=== PATIENT | female | born 2000 | race Two or more races ===

== ENCOUNTER 2021-11-08 12:37 | Emergency (ER) | payer OTHER, SELFPAY ==
[2021-11-08 12:42] VITALS: BP 131/73; PULSE 97; RESP 16; TEMP 36.7; O2SAT 100
--- NOTE | 2021-11-08 13:39 | ED.SKABFB ---
HPI - Skin/Abscess/Foreign Bdy General Chief complaint: Skin/Abscess/Foreign Body Stated complaint: burning and itchy rash that began 1 month ago Time Seen by Provider: 11/08/21 13:09 History of Present Illness HPI narrative: 21-year-old female presents to the emergency room today for complaints of rash to her lower extremities, groin and anterior trunk. She reports that the lesions appear like rings. She says that they are very itchy and she gets new lesions. She was initially treated with a topical antifungal. She says that it did go away when she used this but it came back in new places. She picked up a topical clotrimazole at [facility] yesterday and started using this last night. Related Data Allergies Allergy/AdvReac Type Severity Reaction Status Date / Time No Known Allergies Allergy Verified 11/08/21 12:38 Review of Systems Review of Systems: CONSTITUTIONAL: Denies fever, chills, or sweats. EYES: Denies visual changes, redness, or discharge. ENT: Denies rhinorrhea, congestion, sore throat, or otalgia. CARDIOVASCULAR: Denies chest pain, palpitations, or edema. RESPIRATORY: Denies cough or dyspnea. GASTROINTESTINAL: Denies abdominal pain, nausea, vomiting, or diarrhea. GENITOURINARY: Denies dysuria or hematuria. SKIN: As per HPI MUSCULOSKELETAL: Denies back pain, joint pain, or myalgia. NEUROLOGIC: Denies headache, numbness, dizziness, or weakness. PSYCHIATRIC: Denies anxiety or depression. Exam Narrative: GENERAL: Well-appearing, well-nourished, and in no acute distress. HEAD: Normocephalic, atraumatic. NECK: Supple. No adenopathy or masses. No carotid bruits or JVD CHEST: Clear to auscultation. No respiratory distress. No wheezes rales or rhonchi HEART: Regular rate and rhythm. No murmur heard. Normal peripheral pulses. ABDOMEN: Soft, nontender, nondistended, normal active bowel sounds. EXTREMITIES: Normal range of motion. No edema. SKIN: multiple annular lesions noted to thighs, groin, abdomen and chest wall, edges are mildly raised and rash has dry appearence NEURO: No focal deficits. Alert and oriented x3. PSYCH: Normal mood and affect. Course Vital Signs Vital signs: Vital Signs Temperature 36.7 C 11/08/21 12:42 Pulse Rate 97 11/08/21 12:42 Respiratory Rate 16 11/08/21 12:42 Blood Pressure 131/73 11/08/21 12:42 Pulse Oximetry 100 11/08/21 12:42 Oxygen Delivery Room Air 11/08/21 12:42 Temperature 36.7 C 11/08/21 12:42 Pulse Rate 97 11/08/21 12:42 Respiratory Rate 16 11/08/21 12:42 Blood Pressure 131/73 11/08/21 12:42 Pulse Oximetry 100 11/08/21 12:42 Oxygen Delivery Room Air 11/08/21 12:42 MDM - Skin/Abscess/Foreign Bdy Differential Diagnosis Differential diagnosis: Likely viral exanthem, urticaria, cellulitis, eczema, contact dermatitis and other (tinea corporus ) Discharge Plan Discharge Clinical Impression: Tinea corporis Patient Disposition: Home, Self-Care Condition: Stable Instructions: Antibiotic Form, Tinea Corporis (ED) Additional Instructions: Take diflucan as directed. May continue to use topical clotrimazole to lesions twice a day. If rash is not clearing, your primary care will need to refer you to a public finance specialist. Prescriptions: New fluconazole [Diflucan] 200 mg tablet 200 mg PO WEEKLY 28 Days Qty: 4 0RF Follow-up/Referrals: PHYSICIAN NOT ON STAFF,NONSTAFF [Primary Care Provider] - (in 1 week) Time of Disposition: 13:51
== END 2021-11-08 13:56 | disposition home or self-care (01) ==
PROVIDERS: Emergency Provider Nurse Practitioner Family
DX: B35.4 Tinea corporis (principal)
CPT/HCPCS: 99283

== ENCOUNTER 2023-11-30 16:57 | Emergency (ER) | payer OTHER, SELFPAY ==
--- NOTE | 2023-11-30 17:04 | ED.FEMALEGU ---
HPI - Female Genitourinary General Chief complaint: Abdominal Pain Stated complaint: LOW ABD PAIN/NO PERIOD Source: patient and RN notes reviewed Mode of arrival: ambulatory Limitations: no limitations History of Present Illness HPI Narrative: Patient is a 23-year-old female who presents to the [facility] with complaints vaginal pain and irritation. She states that she has been experiencing vaginal burning along with a milky, white discharge for the last few days. Patient states that she is also late for her menstrual cycle. She states that her last menstrual cycle was on October 13. States that she is a virgin and is not sexually active. She attempted to get in to an OBGYN but the soonest available appointment was in February/ March of next year. She denies abdominal pain, flank pain, nausea, vomiting. Denies recent fevers. Related Data Home Medications Medication Instructions Recorded Confirmed atorvastatin 10 mg tablet 10 mg PO DAILY 11/30/23 11/30/23 Allergies Allergy/AdvReac Type Severity Reaction Status Date / Time No Known Allergies Allergy Verified 11/30/23 17:07 Review of Systems Review of Systems: CONSTITUTIONAL: Denies fever, chills, or sweats. EYES: Denies visual changes, redness, or discharge. ENT: Denies otalgia and sore throat CARDIOVASCULAR: Denies chest pain, palpitations, or edema. RESPIRATORY: Denies cough or dyspnea. GASTROINTESTINAL: Denies abdominal pain, nausea, vomiting, or diarrhea. GENITOURINARY: Denies dysuria or hematuria. Reports vaginal burning and vaginal discharge. SKIN: Denies rash or itching. MUSCULOSKELETAL: Denies back pain, joint pain, or myalgia. NEUROLOGIC: Denies headache, numbness, or weakness. Pertinent positives per HPI. PMFSH Comments At the time of my signature, I reviewed and agree with the nursing past medical, surgical, social, and family history. There is no relevant family history pertinent to the patient complaint. Exam Narrative: GENERAL: This is a well-nourished, well-developed patient, in no apparent distress. HEAD: normocephalic, atraumatic. EYES: Sclera clear/white. Vision is grossly intact. EARS: External ears normal. Hearing grossly intact. NOSE: External nose normal with no obvious nasal discharge, nares without redness, no rhinorrhea. THROAT: Mucous membranes moist, posterior pharynx clear. NECK: Neck supple, non-tender without lymphadenopathy, masses or thyromegaly. CARDIOVASCULAR: Regular rate and rhythm without murmurs, gallops, or rubs. RESPIRATORY: Clear to auscultation. Breath sounds equal bilaterally. No wheezes, rales, or rhonchi. GASTROINTESTINAL: Abdomen soft, non-tender, nondistended. Bowel sounds are active. No hepato-splenomegaly, or palpable masses. No guarding. SKIN: warm, intact with no suspicious lesions or rash, good texture and turgor. NEURO: awake, alert, and oriented to person, place and time. There were no obvious focal neurologic abnormalities. EXTREMITIES: No clubbing, cyanosis, or edema. No joint tenderness, effusion, or edema noted. BACK: Nontender without deformity or crepitance. No flank tenderness. Course Course Level of Care: Express Care Visit Vital Signs Vital signs: Vital Signs Temperature 98.2 F 11/30/23 17:05 Pulse Rate 89 11/30/23 17:05 Respiratory Rate 16 11/30/23 17:05 Blood Pressure 143/89 H 11/30/23 17:05 Pulse Oximetry 100 11/30/23 17:05 Oxygen Delivery Room Air 11/30/23 17:05 Temperature 98.2 F 11/30/23 17:05 Pulse Rate 89 11/30/23 17:05 Respiratory Rate 16 11/30/23 17:05 Blood Pressure 143/89 H 11/30/23 17:05 Pulse Oximetry 100 11/30/23 17:05 Oxygen Delivery Room Air 11/30/23 17:05 Reviewed MDM - Female Genitourinary MDM Narrative Medical decision making narrative: We will send a urine culture off to the lab; if the culture identifies an organism that the prescribed antibiotic will not treat, you will receive a phone call from an urgen
[2023-11-30 17:05] VITALS: BP 143/89; PULSE 89; RESP 16; TEMP 36.8; O2SAT 100
[2023-11-30 17:24] LABS: BEDSIDEPREGUCG Negative (Negative)
[2023-11-30 17:25] LABS: EDUAAPPEAR Cloudy; EDUABILI Negative (Negative); EDUABLOOD Negative (Negative); EDUACOLOR1 Yellow; EDUAGLUCOSE Negative (Negative); EDUAKETONE Negative (Negative); EDUALEUKO 1+ (Negative); EDUANITRATE Negative (Negative); EDUAPROTEIN Negative (Negative); EDUAUROBILI 0.2
== END 2023-11-30 17:34 | disposition home or self-care (01) ==
PROVIDERS: Emergency Provider Nurse Practitioner
DX: N39.0 Urinary tract infection, site not specified (principal); B37.31 Acute candidiasis of vulva and vagina; N91.2 Amenorrhea, unspecified
CPT/HCPCS: 81003; 81025; 87086; 99213; G0463